=== PATIENT | male | born 1960 | race Caucasian/White ===

== ENCOUNTER 2020-11-28 12:14 | Emergency (ER) | payer OTHER ==
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
--- NOTE | 2020-11-29 07:11 | EKG ---
[facility] [address] [facility] [place], [place] [address] Signed Sinus tachycardia Left axis deviation Abnormal ECG No previous ECGs available Confirmed by WILFREDO CONTRERAS MD ([id number]) on 11/29/2020 7:11:00 AM Electronically Signed By: WILFREDO CONTRERAS MD 11/29/20710 PATIENT NAME: MONTSERRAT STORM Electrocardiogram DATE OF : 56 PHYSICIAN: WILFREDO CONTRERAS MD REPORT #: [id number] REPORT IS CONFIDENTIAL AND NOT TO BE RELEASED WITHOUT AUTHORIZATION
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
== END 2020-11-28 15:06 | disposition short-term general hospital (02) ==
LOC: ED 12:14
DX: S06.6X9A Traumatic subarachnoid hemorrhage with loss of consciousness of unspecified duration, initial encounter (principal); S06.5X9A Traumatic subdural hemorrhage with loss of consciousness of unspecified duration, initial encounter; S32.019A Unspecified fracture of first lumbar vertebra, initial encounter for closed fracture; S22.41XA Multiple fractures of ribs, right side, initial encounter for closed fracture; S27.329A Contusion of lung, unspecified, initial encounter; V29.9XXA Motorcycle rider (driver) (passenger) injured in unspecified traffic accident, initial encounter; Z20.822 Contact with and (suspected) exposure to COVID-19
CPT/HCPCS: 31500; 36430; 36600; 51702; 70450; 71045; 71250; 71260; 74176; 74177; 80053; 82803; 83605; 83690; 85025; 85610; 86850; 86900; 86901; 86922; 93005; 93010; 94002; 94799; 99152; 99285-25; G0480; J0330; J2250; J2370; J3010; P9016; U0003